=== PATIENT | female | born 1945 | race Two or more races ===

== ENCOUNTER 2022-09-09 12:22 | Emergency (ER) | payer OTHER ==
[~2022-09-09] VITALS: Ht 152.4 cm; Wt 71.7 kg
== END 2022-09-09 16:34 | disposition home or self-care (01) ==
LOC: ER 12:22
DX: S09.90XA Unspecified injury of head, initial encounter (principal); W19.XXXA Unspecified fall, initial encounter; Y93.9 Activity, unspecified; Y92.9 Unspecified place or not applicable; S49.92XA Unspecified injury of left shoulder and upper arm, initial encounter; S29.9XXA Unspecified injury of thorax, initial encounter; S14.109A Unspecified injury at unspecified level of cervical spinal cord, initial encounter

== ENCOUNTER 2022-10-01 13:38 | Outpatient (CLI) | payer OTHER | END 2022-10-01 14:46 | disposition home or self-care (01) | LOC: MRI 13:38 | PROVIDERS: ATTEND Internal Medicine | DX: Z13.89 Encounter for screening for other disorder (principal); S06.5X0A Traumatic subdural hemorrhage without loss of consciousness, initial encounter | CPT/HCPCS: 70551 ==

== ENCOUNTER 2023-05-08 20:56 | Emergency (ER) | payer OTHER ==
[~2023-05-08] VITALS: Ht 152.4 cm; Wt 54.9 kg
[2023-05-08] MEDS ORDERED: CILOSTAZOL50 MG (21:21)
[2023-05-08] MEDS ORDERED: ATORVASTATIN CA20 MG (21:21)
[2023-05-08] MEDS ORDERED: LOSARTAN POTASS25 MG (21:22)
[2023-05-08] MEDS ORDERED: ANTIVERT25 M2 (21:22)
[2023-05-08] MEDS ORDERED: MONTELUKAST SODI4 M1 (21:22)
== END 2023-05-09 01:00 | disposition designated cancer center or children's hospital (05) ==
LOC: ER 20:56
DX: I61.9 Nontraumatic intracerebral hemorrhage, unspecified (principal); I10 Essential (primary) hypertension; I73.89 Other specified peripheral vascular diseases; R42 Dizziness and giddiness; Z20.822 Contact with and (suspected) exposure to COVID-19